=== PATIENT | male | born 1950 | race Caucasian/White ===

== ENCOUNTER → 2016-04-24 | Day surgery (SDC) | payer MEDICARE, BC ==
[2016-04-24] VITALS (9 sets, daily range): BP systolic 124–154; BP diastolic 55–86
[~2016-04-24] VITALS: Ht 167.6 cm; Wt 95.3 kg
[~2016-04-24] MED LIST: LOW DOSE ASPIRI81 MG PO; LR 1000ml 1,000 ML IVLG ONE; LR 1000ml 1,000 ML IVLG SCH; LR 1000ml ONE; MULTIVITAMINS1 EAC2 PO; Propofol 10mg/ml 20ml IV ONE; UROXATRAL10 MG PO
--- NOTE | 2016-04-24 07:46 | Short Stay Surgery H&P ---
History of Present Illness History of Present Illness Chief Complaint Heartburn and abdominal pains with history of coon polyp HPI Aurelio Duenas is a 65 year old male who was admitted on for Gerd,Colon Polyps Patient History Allergies: Coded Allergies: SULFAMETHOXAZOLE (Verified Allergy, Rash, 01/29/12) TRIMETHOPRIM (Verified Allergy, Rash, 01/29/12) MEPERIDINE HCL (Verified Adverse Reaction, SHAKING,ANXIETY, 01/29/12) SHAKING, ANXIETY PAST MEDICAL HISTORY: (1) Hypertension Past Surgeries: Social History: Medication History Scheduled Alfuzosin 10Mg (Uroxatral), 10 MG PO DAILY, (Reported) Multivitamins* (Multivitamins*), 1 EACH PO DAILY, (Reported) Miscellaneous Medications Aspirin (Low Dose Aspirin Ec), 81 MG PO, (Reported) Review of Systems Cardiovascular: Reports: no symptoms Respiratory: Reports: no symptoms Skeletal: Reports: no symptoms Gastrointestinal: Reports: gastro esophageal reflux disease, no symptoms Genitourinary: Reports: no symptoms Neurologic: Reports: no symptoms Endocrine: Reports: no symptoms Hematologic: Reports: no symptoms Physical Exam Vital Signs Last Vital Signs Date Time Temp Pulse Resp B/P Pulse Ox O2 Delivery O2 Flow Rate FiO2 04/24/16 07:03 97.8 56 18 136/72 95 Room Air Skin: normal HENT: normal Heart: normal Lungs: normal Abdomen: normal Extremities: normal Genitourinary: normal Plan Plan of Care Upper and lower [facility] endoscopies Preop Interventions None. Summary of Findings See the reports Final Diagnosis: Attestation Are the patient's medical conditions optimized for surgery? Attestation Response: yes FREYA RANKIN Apr 24, 2016 07:46
--- NOTE | 2016-04-24 07:48 | Pre-Procedure Note/Attestation ---
Pre-Procedure Note/Attestation Complete Prior to Procedure Planned Procedure: left Procedure Narrative: Upper and lower GI endoscopy Indications for Procedure Pre-Operative Diagnosis: R/O Peptic ulcer and colon polyps Attestation I attest that I discussed the nature of the procedure; its benefits; risks and complications; and alternatives (and the risks and benefits of such alternatives ), prior to the procedure, with the patient (or the patient's legal sales representative public utilities). I attest that, if there was a reasonable possibility of needing a blood transfusion, the patient (or the patient's legal sales representative public utilities) was given the [facility] standardized written summary, pursuant to the [place] Blood Safety Act ([place] Health and Safety Code # 1645, as amended). I attest that I re-evaluated the patient just prior to the surgery and that there has been no change in the patient's H&P, except as documented below: CHUCHO,SAID Apr 24, 2016 07:48
--- NOTE | 2016-04-24 08:21 | Anethesia Preoperative Eval ---
Anesthesia Pre-op PMH/ROS General Mallampati Score Class I : Soft palate, uvula, fauces, pillars visible Class II: Soft palate, uvula, fauces visible Class III: Soft palate, base of uvula visible Class IV: Only hard plate visible Allergies: Coded Allergies: SULFAMETHOXAZOLE (Verified Allergy, Rash, 01/29/12) TRIMETHOPRIM (Verified Allergy, Rash, 01/29/12) MEPERIDINE HCL (Verified Adverse Reaction, SHAKING,ANXIETY, 01/29/12) SHAKING, ANXIETY Past Medical History Cardiovascular: Reports: HTN Pulmonary: Reports: SALLIE Gastrointestinal/Genitourinary: Reports: GERD Neurologic/Psychiatric: Denies: CVA, TIA, dementia, depression/anxiety, other Endocrine: Denies: DM, hypothyroidism, other, steroids HEENT: Denies: [place] (L), [place] (R), cataract (L), cataract (R), glaucoma, other Hematology/Immune: Denies: DVT, anemia, bleeding disorder, other Musculoskeletal/Integumentary: Denies: DDD, DJD, OA, RA, edema, other Other: obesity PMH Narrative: HTN, SALLIE, GERD PSxH Narrative: colonoscopy Anesthesia Pre-op Phys. Exam Physician Exam Last Vital Signs Date Time Temp Pulse Resp B/P Pulse Ox O2 Delivery O2 Flow Rate FiO2 04/24/16 07:03 97.8 56 18 136/72 95 Room Air Constitutional: NAD Neurologic: CN 2-12 intact Cardiovascular: RRR Respiratory: CTA Gastrointestinal: S/NT/ND Airway Exam Mallampati Score: Class II MO: full ROM: full Teeth: intact Dentures: no lower, no upper CATARINA FONTAINE D.O. Apr 24, 2016 08:21
--- NOTE | 2016-04-24 08:31 | Immediate Post-Op Evaluation ---
Immediate Post-Op Evalulation Immediate Post-Op Evalulation Procedure: EGD with biopsy, colonoscopy with polypectomy Date of Evaluation: Apr 24, 2016 Time of Evaluation: 08:30 IV Fluids: 100 Blood Products: none Estimated Blood Loss: none Urinary Output: due to void Blood Pressure Systolic: 106 Blood Pressure Diastolic: 72 Pulse Rate: 55 Respiratory Rate: 16 O2 Sat by Pulse Oximetry: 98 Temperature (Fahrenheit): 97 Pain Score (1-10): 0 Nausea: No Vomiting: No Complications none Patient Status: awake, reacts Hydration Status: adequate Drug: n/a CATARINA FONTAINE D.O. Apr 24, 2016 08:31
--- NOTE | 2016-04-24 08:32 | Endoscopy Procedure Note ---
Endoscopy Procedure Note Indication for Procedure: History of acid reflux, GERDs, colon polyp Procedures Performed: EGD - Small hiatal hernia otherwise completely normal upper GI endoscopy. Random biospy obtained from gastric body., colonoscopy - Poor colon prep. 1 Cm pedunculated polyp found at Hepatic felxture/transverse colon that was removed with hot snare. Specimen: yes Pt Tolerated Procedure Well: Yes Estimated Blood Loss: none Anesthesiologist: Dr. Cowart Anesthesia: moderate sedation Medication Given: see anesthesia record Implant(s) used?: No 50 yrs or older w/o bx or poly: Yes 10yrs. F/U not recommended: Yes If not recommended, why?: 10 yrs. F/U needed: Yes <3yrs. since last colonoscopy: No Med reason:<3 yrs.: System Reason:<3 yrs.: Last colonoscopy >= to 3yrs: Yes FREYA RANKIN Apr 24, 2016 08:32
--- NOTE | 2016-04-24 08:33 | Discharge Instructions ---
Discharge Instructions Discharge Instructions Follow up with: See docotor after two weeks. For Congestive Heart Failure Reminder Report to your physician any weight gain of 5 pounds or more in one week. FREYA RANKIN Apr 24, 2016 08:33
--- NOTE | 2016-04-24 08:45 | 48 Hour Post Anesthesia Eval ---
Post Anesthesia Evaluation Procedure: EGD with biopsy, colonoscopy with polypectomy Date of Evaluation: Apr 24, 2016 Time of Evaluation: 08:44 Blood Pressure Systolic: 124 0: 73 Pulse Rate: 50 Respiratory Rate: 16 Temperature (Fahrenheit): 97 O2 Sat by Pulse Oximetry: 99 Airway: patent Nausea: No Vomiting: No Pain Intensity: 0 Hydration Status: adequate Cardiopulmonary Status: stable Mental Status/LOC: patient returned to baseline Follow-up Care/Observations: as per GI Post-Anesthesia Complications: none Follow-up care needed: N/A CATARINA FONTAINE D.O. Apr 24, 2016 08:45
--- NOTE | 2016-04-24 12:38 | Operative Note - Dictated ---
DATE OF OPERATION: 04/24/2016 PROCEDURE: Esophagogastroduodenoscopy with biopsy. PREOPERATIVE DIAGNOSES: 1. History of gastroesophageal reflux. 2. Abdominal pain. POSTOPERATIVE DIAGNOSIS: Small hiatal hernia, otherwise, complete normal upper gastrointestinal endoscopy. Biopsy was done per random from gastric body. MEDICATION USED: Per Dr. Salcedo, anesthesiologist INSTRUMENT: GIF Olympus upper gastrointestinal video endoscope. DESCRIPTION OF PROCEDURE: The patient after arriving endoscopy unit, was told about risks and benefits of the procedure, which he accepted and signed the informed consent. He was then at this time, was put on the left lateral decubitus position. After adequate IV sedation, scope gently passed through the cricopharyngeal area and was lodged into the upper esophagus, and gradually advanced towards gastroesophageal junction. The entire length of the esophagus looked normal. Upon reaching to the gastroesophageal junction, the area looked normal except evidence of presence of a small hiatal hernia, but there was no Corona's. At this time, the scope was advanced into the stomach. Gastric cavity was distended. The areas of the fundus and the body and the antrum were examined in an premises technician fashion, which revealed complete normal findings plus that there was also a procedure of a retroflexion maneuver, which was applied to evaluate GE junction, and fundus better, which revealed normal findings as well. At this time, the scope was passed into the antrum from there into normal looking pylorus. First and second portion of duodenum was also was found to be completely normal. Finally, scope was pulled back into the stomach. One random biopsy from gastric body was obtained and subsequently, the procedure was terminated. The patient tolerated the procedure well. Said Jimenez Trujillo DR: Heide JOB#: [id number] CC:
--- NOTE | 2016-04-24 13:08 | Operative Note - Dictated ---
DATE OF OPERATION: 04/24/2016 SURGEON: Yudi Trujillo M.D. PROCEDURE: Total colonoscopy with polypectomy. PREOPERATIVE DIAGNOSIS: 1. History of colon polyp. 2. Abdominal pain. POSTOPERATIVE DIAGNOSES: 1. Poor colonic preparation. 2. Presence of a 1 cm pedunculated polypoid lesion over the hepatic flexure, and junction of the transverse colon, which was removed with hot snare totally. Otherwise, the examination was totally normal up to the base of the cecum as examined. MEDICATION USED: Per Dr. Salcedo, anesthesiologist. INSTRUMENT: GIF Olympus videocolonoscope. DESCRIPTION OF PROCEDURE: The patient after arriving endoscopy unit, was told about risks and benefits of the procedure, which he accepted and signed the informed consent. He was then put on the left lateral decubitus position. After adequate IV sedation, scope gently passed through the anal area and careful examination of the section did not reveal any evidence of any hemorrhoids, or polyps, tumors inflammatory process in the rectum when a retroflexion maneuver was also applied. At this time, the scope was passed into the rectosigmoid area, from there into descending colon, and gradually with maneuvers reached to the splenic flexure. All these areas remained to be normal. However, there was evidence of somewhat formed stools along the colon, which made the examination difficult signifying poor colonic preparation. However, multiple irrigation had to be done during the entire examination of the colon. At this point, the scope was advanced into the transverse colon reaching towards the hepatic flexure, and when there was found evidence of a pedunculated polyp at the site of 1 centimeter, which seemed to be quite benign looking with soft surface. It was grabbed with a hot snare and there was totally removed and the specimen was submitted to the pathology lab. The site of polypectomy remained to be completely normal without bleeding. At this time, the scope was passed into the right colon all the way to the base of the cecum, which also revealed normal finding and presence of liquidy stools along this area. Finally, within 8 minutes the scope was gradually pulled out and reexamination of the colon did not reveal any evidence of polypoid lesions, though the presence of a small diminutive polypoid lesion could not be ruled out due to the poor colon preparation. The patient finally tolerated the procedure well and left the endoscopy room in a good condition. Said Jimenez Trujillo DR: Heide JOB#: [id number] CC: MARGE
== END | disposition home or self-care (01) ==
LOC: GAS 06:34
DX: K29.50 Unspecified chronic gastritis without bleeding (principal); K44.9 Diaphragmatic hernia without obstruction or gangrene; K21.9 Gastro-esophageal reflux disease without esophagitis; D12.6 Benign neoplasm of colon, unspecified; Z86.010 Personal history of colon polyps; I10 Essential (primary) hypertension; G47.33 Obstructive sleep apnea (adult) (pediatric); E66.9 Obesity, unspecified; Z88.3 Allergy status to other anti-infective agents; Z88.5 Allergy status to narcotic agent; Z88.2 Allergy status to sulfonamides
CPT/HCPCS: 43239; 45385; J2704; J7120; 94003; 94150